=== PATIENT | male | born 1970 | race Caucasian/White ===

== ENCOUNTER 2024-03-20 05:56 | Inpatient (IN) | payer BC ==
[~2024-03-20] VITALS: Ht 175.3 cm; Wt 102.1 kg
[2024-03-20] MEDS ORDERED: ONDANSETRON HCL INJ 2MG/ML 2ML 2 MG/ML VIAL ONE (06:31)
[2024-03-20] MEDS ORDERED: SODIUM CHLORIDE 0.9% 1000ML 1,000 ML ONE ×2 (06:31→11:53)
[2024-03-20] MEDS: ONDANSETRON HCL INJ 2MG/ML 2ML 2 MG/ML VIAL IV STA ×2 (06:46→06:54)
[2024-03-20] MEDS: SODIUM CHLORIDE 0.9% 1000ML 1,000 ML IV STA (06:46)
[2024-03-20] MEDS: KETOROLAC TROMETHAMINE 30 MG/ML VIAL IV STA ×2 (06:54→11:55)
[2024-03-20] MEDS: FAMOTIDINE 20 MG/2 ML VIAL IV STA (06:55)
[2024-03-20] MEDS ORDERED: IOPAMIDOL 370 MG/ML 100 ML INFUS..BTL INJ ONE (07:08)
[2024-03-20 07:55] LABS: CREATINE KINASE 96 IU/L (30-200); TROPONIN I < 0.001 ng/mL (0-0.300)
[2024-03-20 09:22] LABS: CREATINE KINASE 97 IU/L (30-200)
[2024-03-20 09:59] LABS: TROPONIN I < 0.001 ng/mL (0-0.300)
[2024-03-20] MEDS: SODIUM CHLORIDE 0.9% 250ML IRRIG IR SCH (10:00)
[2024-03-20] MEDS ORDERED: Morphine 4mg INJECTION 4 MG/ML INJ IV PRN (11:45)
[2024-03-20] MEDS ORDERED: KETOROLAC TROMETHAMINE 30 MG/ML VIAL ONE (11:53)
[2024-03-20] MEDS: SODIUM CHLORIDE 0.9% 1000ML 1,000 ML IV SCH (11:56)
[2024-03-20 12:07] VITALS: PULSE 85; RESP 16; TEMP 98.7
[2024-03-20 13:00] VITALS: BP 154/85; PULSE 78; RESP 20; TEMP 98.2; O2SAT 96
[2024-03-20] MEDS ORDERED: METOPROLOL TARTRATE INJ 1 MG/ML VIAL IV PRN (13:00)
[2024-03-20 13:45] VITALS: BP 154/85; PULSE 78; RESP 20; TEMP 98.2; O2SAT 96
[2024-03-20] MEDS: D5.45%NS/KCL 20MEQ 1,000 ML IV SCH (14:21)
[2024-03-20] MEDS ORDERED: ACETAMINOPHEN 650 MG SUPP PR PRN (14:45)
[2024-03-20] MEDS: KETOROLAC TROMETHAMINE 30 MG/ML VIAL IV PRN (14:49)
[2024-03-20] MEDS: ONDANSETRON HCL INJ 2MG/ML 2ML 2 MG/ML VIAL IV PRN (16:09)
[2024-03-20 16:30] VITALS: BP 134/93; PULSE 87; RESP 19; TEMP 97.3; O2SAT 98
[2024-03-20] MEDS ORDERED: MICARDIS80 MG PO (16:32)
[2024-03-20] MEDS ORDERED: SULFASALAZINE500 MG PO (16:32)
[2024-03-20] MEDS ORDERED: METFORMIN HCL500 MG PO (16:32)
[2024-03-20] MEDS ORDERED: MESALAMINE1000 MG RC (16:32)
[2024-03-20] MEDS: ACETAMINOPHEN 1000 MG/100 ML IV PRN (17:41)
[2024-03-20] MEDS: FAMOTIDINE 20 MG/2 ML VIAL IV SCH (17:41)
[2024-03-20] MEDS: MEPERIDINE HCL INJ 25 MG/ML VIAL IV PRN (19:51)
[2024-03-20 21:00] VITALS: BP 134/93; PULSE 87; RESP 19; TEMP 97.3; O2SAT 98
[2024-03-21 06:33] LABS: BASOPHILS % 0.4 % (0.0-1.0); EOSINOPHILS # (AUTO) 0.1 (0.0-0.4); EOSINOPHILS % 0.6 % (0.0-6.0); HEMATOCRIT 44.7 % (38.2-49.6); HEMOGLOBIN 14.5 g/dL (14.0-18.0); LYMPHOCYTES # (AUTO) 1.1 (1.0-3.2); MEAN CORPUSCULAR HEMOGLOBIN 29.7 pg (28-32); MEAN CORPUSCULAR HGB CONC 32.4 g/dL (31-35); MEAN CORPUSCULAR VOLUME 91.4 fL (81-99); MONOCYTES # (AUTO) 1.1 (0.2-0.8); MONOCYTES % 9.9 % (4.4-11.3); NEUTROPHILS # (AUTO) 8.6 (2.1-6.9); NEUTROPHILS % 78.5 % (38.7-80.0); PLATELET COUNT 210 x10e3/uL (140-360); RED BLOOD COUNT 4.89 x10e6/uL (4.3-5.7); RED CELL DISTRIBUTION WIDTH 13.6 % (11.7-14.4)
[2024-03-21 07:01] LABS: CREATINE KINASE 48 IU/L (30-200)
[2024-03-21 07:04] LABS: ALBUMIN 3.4 g/dL (3.5-5.0); ALBUMIN/GLOBULIN RATIO 1.3 (0.8-2.0); BILIRUBIN,TOTAL 0.6 mg/dL (0.2-1.2); CALCIUM 8.2 mg/dL (8.4-10.2); POTASSIUM 4.2 mmol/L (3.5-5.1); TOTAL PROTEIN 6.1 g/dL (6.5-8.1)
[2024-03-21 07:09] LABS: TROPONIN I < 0.001 ng/mL (0-0.300)
[2024-03-21 07:23] LABS: PHOSPHORUS 3.6 MG/DL (2.3-4.7)
[2024-03-21 09:09] LABS: ANION GAP 15.2 mmol/L (8-16)
[2024-03-21 09:10] VITALS: BP 134/93; PULSE 87; RESP 19; TEMP 97.3; O2SAT 98
[2024-03-21 09:23] VITALS: BP 131/87; PULSE 85; RESP 20; TEMP 98.6; O2SAT 96
[2024-03-21] MEDS: CHLORASEPTIC SPRAY 177 ML BTL MM PRN (10:50)
[2024-03-21] MEDS: SODIUM CHLORIDE 0.45% 1,000 ML IV SCH (16:01)
[2024-03-21 17:33] VITALS: BP 154/89; PULSE 75; RESP 20; TEMP 99; O2SAT 98
[2024-03-21 20:00] VITALS: BP 127/69; PULSE 82; RESP 20; TEMP 98.6; O2SAT 98
[2024-03-22] VITALS: BP 144/88; PULSE 70; RESP 20; TEMP 98; O2SAT 97
[2024-03-22 00:34] LABS: CREATINE KINASE 89 IU/L (30-200)
[2024-03-22 00:49] LABS: TROPONIN I < 0.001 ng/mL (0-0.300)
[2024-03-22 04:00] VITALS: BP 153/91; PULSE 75; RESP 20; TEMP 98.6; O2SAT 99
[2024-03-22 05:03] LABS: BASOPHILS % 0.5 % (0.0-1.0); EOSINOPHILS # (AUTO) 0.1 (0.0-0.4); HEMATOCRIT 43.2 % (38.2-49.6); HEMOGLOBIN 13.6 g/dL (14.0-18.0); LYMPHOCYTES # (AUTO) 1.8 (1.0-3.2); LYMPHOCYTES % 27.7 % (18.0-39.1); MEAN CORPUSCULAR HEMOGLOBIN 28.9 pg (28-32); MEAN CORPUSCULAR HGB CONC 31.5 g/dL (31-35); MEAN CORPUSCULAR VOLUME 91.9 fL (81-99); MONOCYTES # (AUTO) 0.9 (0.2-0.8); MONOCYTES % 14.1 % (4.4-11.3); NEUTROPHILS # (AUTO) 3.6 (2.1-6.9); NEUTROPHILS % 55.4 % (38.7-80.0); PLATELET COUNT 216 x10e3/uL (140-360); RED CELL DISTRIBUTION WIDTH 13.5 % (11.7-14.4); WHITE BLOOD COUNT 6.54 x10e3/uL (4.8-10.8)
[2024-03-22 05:20] LABS: ANION GAP 11.8 mmol/L (8-16); CALCIUM 8.4 mg/dL (8.4-10.2); POTASSIUM 3.8 mmol/L (3.5-5.1)
[2024-03-22 06:12] LABS: PHOSPHORUS 3.1 MG/DL (2.3-4.7)
[2024-03-22 08:23] VITALS: BP 167/98; PULSE 74; RESP 18; TEMP 98.4; O2SAT 100
[2024-03-22 08:45] VITALS: BP 167/98; PULSE 74; RESP 18; TEMP 98.4; O2SAT 100
[2024-03-22] MEDS ORDERED: ONDANSETRON ODT4 MG PO (10:29)
[2024-03-22] MEDS ORDERED: SENOKOT8.6 MG PO (10:29)
[2024-03-22] MEDS ORDERED: FAMOTIDINE20 MG PO (10:29)
[2024-03-22] MEDS ORDERED: DOCUSATE SODIU100 MG PO (10:29)
[2024-03-22] MEDS ORDERED: METRONIDAZOLE500 MG PO (10:31)
== END 2024-03-22 12:00 | disposition home or self-care (01) | DRG 389 ==
LOC: FSED 05:59 → ERHOLD 08:41 → MED/SURG2 13:24
PROVIDERS: ADMIT Internal Medicine; ATTEND Internal Medicine
DX: K56.600 Partial intestinal obstruction, unspecified as to cause (principal); K50.90 Crohn's disease, unspecified, without complications; K76.0 Fatty (change of) liver, not elsewhere classified; J84.10 Pulmonary fibrosis, unspecified; I10 Essential (primary) hypertension; K21.9 Gastro-esophageal reflux disease without esophagitis; R73.03 Prediabetes; E66.9 Obesity, unspecified; Z68.33 Body mass index [BMI] 33.0-33.9, adult; Z11.52 Encounter for screening for COVID-19; Z88.5 Allergy status to narcotic agent
CPT/HCPCS: 0223U; 36415; 71045; 71046; 74018; 74177; 76705; 80048; 80053; 80076; 82550; 82553; 82948; 83735; 84100; 84484; 85025; 87400; 93005; 96376; 99284; J1885; J2175; J2405; J2543; J7030; Q9967